=== PATIENT | male | born 2000 | race Caucasian/White ===

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

== ENCOUNTER 2022-10-13 15:42 | Emergency (ER) | payer OTHER ==
[2022-10-13] MEDS ORDERED: diphenhydrAMINE 50 MG CAP ONE (16:21)
[2022-10-13] MEDS ORDERED: Metoclopramide HCl 10 MG/2 ML VIAL ONE (16:21)
[2022-10-13] MEDS ORDERED: diphenhydrAMINE 50 MG/ML VIAL ONE (16:22)
[2022-10-13 16:26] LABS: Hematocrit 46.3 % (42.0-52.0); Hemoglobin 16.3 g/dL (14.0-18.0); Mean Corpuscular HGB CONC 35.2 g/dL (32.0-36.0); Mean Corpuscular Hemoglobin 30.5 pg (25.0-35.0); Mean Corpuscular Volume 86.5 fl (78.0-98.0); Mean Platelet Volume 10.3 fL (7.4-10.4); Platelet Count 181 10x3/uL (130-400); RBC Distribution Width 11.5 % (11.5-14.5); Red Blood Cell (RBC) Count 5.35 mill/uL (4.00-5.20); White Blood Cell (WBC) Count 4.5 10x3/uL (4.8-10.8)
[2022-10-13 16:27] LABS: Delete Auto Diff?? YES; Manual Diff?? YES
[2022-10-13 16:30] LABS: Bacteria/HPF None Seen HPF (None Seen); Bilirubin Negative (Negative); Blood, Urine Negative (Negative); CAUTI Indications for Culture Fever or rigors; Clarity Clear (Clear); Glucose, Urine (Dipstick) Normal (Negative); Ketone, Urine Negative (Negative); Leukocyte Negative Leu/uL (Negative); Nitrite Negative (Negative); Protein, Urine (Dipstick) Negative (Neg-Trace); RBC/HPF None Seen HPF (0-3); Specific Gravity, Urine 1.002 (1.002-1.036); Squamous Epithelial None Seen HPF (0-3); Urobilinogen Normal mg/dL (Less than 2); WBC/HPF None Seen HPF (0-3)
[2022-10-13 16:32] LABS: Urine Culture Reflex No No
[2022-10-13 16:39] LABS: MONO NEGATIVE CONTROL ZONE White (Negative) (White); MONO POSITIVE CONTROL Pink Line (Positive) (PINK/RED); Mononucleosis POSITIVE (NEGATIVE)
[2022-10-13 16:50] LABS: ALT (SGPT) 23 U/L (8-55); AST (SGOT) 25 U/L (5-34); Albumin 4.5 g/dL (3.5-5.0); Alkaline Phosphatase 60 U/L (50-130); Anion Gap 14 mmol/L (10-20); BUN (Urea Nitrogen) 7 mg/dL (8.9-20.6); Bilirubin, Total 0.6 mg/dL (0.2-1.2); Calc. Creatinine Clearance 0 mL/min (70-130); Calcium 9.6 mg/dL (7.8-10.44); Carbon Dioxide 24 mmol/L (22-29); Chloride 101 mmol/L (98-107); Estimated GFR 103; Globulin 2.7 g/dL (2.4-3.5); Glucose 90 mg/dL (70-105); Lipase 17 U/L (8-78); Potassium 3.6 mmol/L (3.5-5.1); Protein, Total 7.2 g/dL (6.0-8.3); Sodium 135 mmol/L (136-145)
[2022-10-13 16:53] LABS: Band 11 % (5-11); Burr Cells SLIGHT = 2-5 cells HPF (0-1); CellaVision Operator ID LAB.KB; Eosinophils 1 % (0-10); Lymphocytes 16 % (28-48); Monocytes 13 % (0-4); Neutrophil 38 % (31-61); Platelet Adequacy Comment Platelets Normal; Reactive Lymphocytes 20 % (0-10); Total Cell Count 104
[2022-10-13 17:03] LABS: SARS-CoV-2 NAA Rapid Test Not Detected (NotDetected)
== END 2022-10-13 17:57 | disposition home or self-care (01) ==
LOC: ERS 15:42
DX: B27.90 Infectious mononucleosis, unspecified without complication (principal); Z20.822 Contact with and (suspected) exposure to COVID-19
CPT/HCPCS: 36415; 71045; 80053; 81001; 83690; 85025; 86308; 96365; 96375; J1200; J2765